=== PATIENT | male | born 1995 | race Caucasian/White ===

== ENCOUNTER → 2019-05-03 | Outpatient (CLI) | payer OTHER ==
--- NOTE | 2019-05-03 16:17 | RAD ---
WRIST 3V RIGHT DATE: 05/03/2019 12:00 AM INDICATION: Wrist pain COMPARISON: None. FINDINGS: Bones: There is no evidence of acute fracture or dislocation. Joints: The joint spaces are normal. Miscellaneous: None. IMPRESSION: No evidence of acute fracture. Electronically signed by: Orlando Faust MD (05/03/2019 4:14 PM) [id number]
== END ==
LOC: RAD 14:05
PROVIDERS: ATTEND Physician Assistant
DX: M25.531 Pain in right wrist (principal)
CPT/HCPCS: 73110